=== PATIENT | male | born 1945 | race Caucasian/White ===

== ENCOUNTER 2018-07-18 19:00 | Observation (INO) | payer MEDICARE ==
[~2018-07-18] VITALS: Ht 182.9 cm; Wt 94.8 kg
[2018-07-18] MEDS ORDERED: ATORVASTATIN CA20 MG ORAL (19:04)
[2018-07-18] MEDS ORDERED: ASPIR 8181 MG ORAL (19:04)
[2018-07-18 19:05] VITALS: BP 155/88
--- NOTE | 2018-07-18 19:05 | NUR ---
ED Nurse Note: Pt brought in by [facility] for nausea and vomiting since 10 am. Pt states vomitus began to appear bloody. Last emesis was coffee ground like. No complaint of abdominal pain, abdomen soft, round and non-tender. Pt connected to monitor, VSS. Showing no signs of acute distress.
[2018-07-18] MEDS: Sodium Chloride 550 ML IV SCH ×2 (20:30→23:10)
[2018-07-18 20:52] LABS: HEMATOCRIT 49.5 % (42.0-52.0); HEMOGLOBIN 16.9 G/DL (14.2-18.0); MEAN CORPUSCULAR VOLUME 93 FL (80-99); PLATELET COUNT 154 K/UL (150-450); RED BLOOD COUNT 5.35 M/UL (4.70-6.10); RED CELL DISTRIBUTION WIDTH 11.6 % (11.6-14.8); WHITE BLOOD COUNT 9.5 K/UL (4.8-10.8)
[2018-07-18 20:57] LABS: BASOPHILS % (AUTO) 0.6 % (0.0-2.0); EOSINOPHILS % (AUTO) 1.2 % (0.0-3.0); LYMPHOCYTES % (AUTO) 4.2 % (20.0-45.0); MONOCYTES % (AUTO) 4.5 % (1.0-10.0); NEUTROPHILS % (AUTO) 89.5 % (45.0-75.0)
[2018-07-18 21:05] LABS: INR 1.1 (0.9-1.1)
[2018-07-18 21:07] LABS: ANION GAP 3 mmol/L (5-15); BLOOD UREA NITROGEN 18 mg/dL (7-18); CALCIUM 10.8 MG/DL (8.5-10.1); CARBON DIOXIDE 28 MMOL/L (21-32); CHLORIDE 106 MMOL/L (98-107); CREATININE 0.9 MG/DL (0.55-1.30); POTASSIUM 4.9 MMOL/L (3.5-5.1); SODIUM 137 MMOL/L (136-145)
--- NOTE | 2018-07-18 21:11 | Emergency Room Report ---
History of Present Illness General Chief Complaint: Gastrointestinal Bleed Source: Patient, Medical Record Present Illness HPI Patient presents from urgent care via EMS. He was vomiting blood earlier. Also he vomited some dark material he thinks had blood. He was constipated yesterday but moved his bowels. There was no melena. Denies any abdominal pain. Still feels nauseated. He feels dehydrated. The patient was retching forcefully before this happened. He denies any fevers or chills. The patient recently returned from [place] with a 16 hour flight. He denies any calf pain or edema. Has a history of cardiac stents and apparently has an ejection fraction of 50%. Distant smoking history. Allergies: Coded Allergies: No Known Allergies (Unverified , 07/18/18) Patient History Past Medical History: see triage record Past Surgical History: PTCA Social History: Denies: smoking - prior, alcohol use, drug use Social History Narrative business info consultant Reviewed Nursing Documentation: PMH: Agreed; PSxH: Agreed Nursing Documentation-PMH Past Medical History: No History, Except For Hx Cardiac Problems: No - stent 4 yrs ago Review of Systems All Other Systems: negative except mentioned in HPI Physical Exam Vital Signs Date Time Temp Pulse Resp B/P (MAP) Pulse Ox O2 Delivery O2 Flow Rate FiO2 07/18/18 19:00 99.7 80 16 155/88 96 Room Air Sp02 EP Interpretation: reviewed, normal General Appearance: well appearing, no apparent distress, GCS 15 Head: normocephalic, atraumatic Eyes: bilateral eye normal inspection, bilateral eye PERRL, bilateral eye EOMI ENT: dry mucus membranes Neck: supple Respiratory: lungs clear, normal breath sounds Cardiovascular #1: regular rate, rhythm Cardiovascular #2: 2+ radial (R) Gastrointestinal: normal inspection, normal bowel sounds, non tender, no mass, non-distended Musculoskeletal: back normal, gait/station normal, normal range of motion Neurologic: alert, oriented x3, grossly normal Psychiatric: mood/affect normal, other - articulate Skin: normal inspection, warm/dry Medical Decision Making Diagnostic Impression: Primary Impression: Gastrointestinal hemorrhage Qualified Codes: K92.2 - Gastrointestinal hemorrhage, unspecified Additional Impression: Stale abnormal EKG ER Course Patient presents after vomiting coffee grounds and blood. Differential includes gastritis, Alejandrina-Cornejo tear, peptic ulcer disease, gastroenteritis amongst others. We need to exclude any cardiac disease. He's recently traveled and consideration would be for pulmonary embolus also. This is less likely based on his vital signs. Evaluation will be with EKG, chest x-ray abdomen films and labs. The patient will be treated with gentle IV hydration and also Zofran and Pepcid. EKG with ST changes septally. Not STEMI. CXR unremarkable. ABD - NSBGP. Labs with normal WBC and H/H. CMP with slightly elevated calcium and glucose. Patient was comfortable with the plan to observe him here. Another daughter came in and says that she wants him at [facility]. She starting to sign out AMA. Asked her to wait for labs return. Reviewed labs with family and need for observation. They initially did not want this as they requested transfer to [facility], then changed their minds after discussion with PMD. EKG compared to 3 prior tracings 6 months and 1 year and unchanged. Still nauseated. Zofran repeated. Admit obs telemetry Dr. Mcgovern. Laboratory Tests Test 07/18/18 20:25 White Blood Count 9.5 K/UL (4.8-10.8) Red Blood Count 5.35 M/UL (4.70-6.10) Hemoglobin 16.9 G/DL (14.2-18.0) Hematocrit 49.5 % (42.0-52.0) Mean Corpuscular Volume 93 FL (80-99) Mean Corpuscular Hemoglobin 31.6 PG (27.0-31.0) H Mean Corpuscular Hemoglobin Concent 34.1 G/DL (32.0-36.0) Red Cell Distribution Width 11.6 % (11.6-14.8) Platelet Count 154 K/UL (150-450) Mean Platelet Volume 9.6 FL (6.5-10.1) Neutrophils (%) (Auto) 89.5 % (45.0-75.0) H Lymphocytes (%) (Auto) 4.2 % (20.0-45.0) L Monocytes (%) (Auto) 4.5 % (1.0-10.0) Eosinophils (%) (Auto) 1.2 % (0.0-3.0) Basophils (%) (Auto) 0.6 % (0.0-2.0) Prothrombin Time 11.5 SEC (9.30-11.50) Prothrombin Time INR 1.1 (0.9-1.1) PTT 24 SEC (23-33) Sodium Level 137 MMOL/L (136-145) Potassium Level 4.9 MMOL/L (3.5-5.1) Chloride Level 106 MMOL/L (98-107) Carbon Dioxide Level 28 MMOL/L (21-32) Anion Gap 3 mmol/L (5-15) L Blood Urea Nitrogen 18 mg/dL (7-18) Creatinine 0.9 MG/DL (0.55-1.30) Estimate Glomerular Filtration Rate > 60 mL/min (>60) Glucose Level 126 MG/DL (74-106) H Calcium Level 10.8 MG/DL (8.5-10.1) H Total Bilirubin 1.1 MG/DL (0.2-1.0) H Direct Bilirubin 0.3 MG/DL (0.0-0.3) Aspartate Amino Transferase (AST) 20 U/L (15-37) Alanine Aminotransferase (ALT) 28 U/L (12-78) Alkaline Phosphatase 102 U/L (46-116) Total Creatine Kinase 102 U/L (26-308) Troponin I 0.003 ng/mL (0.000-0.056) Total Protein 6.5 G/DL (6.4-8.2) Albumin 3.7 G/DL (3.4-5.0) Globulin 2.8 g/dL Albumin/Globulin Ratio 1.3 (1.0-2.7) Lipase 134 U/L (73-393) EKG Diagnostic Results Rate: normal Rhythm: NSR ST Segments: no acute changes - Septal ST abnormality, not STEMI Rhythm Strip Diag. Results EP Interpretation: yes Rhythm: NSR, no PVC's, no ectopy Chest X-Ray Diagnostic Results Chest X-Ray Diagnostic Results : Chest X-Ray Ordered: Yes # of Views/Limited/Complete: 1 View Indication: Other EP Interpretation: Yes Interpretation: no consolidation, no effusion, no pneumothorax, other - poor insp Impression: Other Electronically Signed by: Electronically signed by Esteban Edward MD Other X-Ray Diagnostic Results Other X-Ray Diagnostic Results : X-Ray ordered: abd # of Views/Limited Vs Complete: 2 View Indication: Other EP Interpretation: Yes Interpretation: nonspecific bowel gas, no sbo, other Impression: Other Electronically Signed by: Electronically signed by Esteban Edward MD Last Vital Signs Date Time Temp Pulse Resp B/P (MAP) Pulse Ox O2 Delivery O2 Flow Rate FiO2 07/18/18 23:40 62 07/18/18 23:00 Room Air 07/18/18 19:00 99.7 16 155/88 96 Status: improved Disposition: PLACE IN OBSERVATION Condition: Serious Referrals: NOT CHOSEN IPA/,REFERRING (PCP) Esteban Edward MD Jul 18, 2018 21:11
[2018-07-18 21:17] LABS: ALANINE AMINOTRANSFERASE 28 U/L (12-78); ALBUMIN 3.7 G/DL (3.4-5.0); ALBUMIN/GLOBULIN RATIO 1.3 (1.0-2.7); ALKALINE PHOSPHATASE 102 U/L (46-116); ASPARTATE AMINO TRANSFERASE 20 U/L (15-37); BILIRUBIN,TOTAL 1.1 MG/DL (0.2-1.0); CREATINE KINASE 102 U/L (26-308)
[2018-07-18 21:20] LABS: BILIRUBIN,DIRECT 0.3 MG/DL (0.0-0.3)
[2018-07-18] MEDS ORDERED: Morphine Sulfate 2mg/ml Inj(IV/IM USE ONLY) IVP ONE (21:30)
--- NOTE | 2018-07-18 22:45 | NUR ---
NURSE NOTES: Received a report over the phone from ILANA Dockery.Patient stable,no c/o pain,no respiratory distress noted,tolerated r/air well,no s/s of nausea and vomiting,A&Ox4,SR on hall monitor,no signs of dehydration noted,fluids,Pepcid and Zofran given in ER,patient ambulatory stable,waiting patient on a floor.
--- NOTE | 2018-07-18 22:55 | NUR ---
ED Nurse Note: Pt taken to [facility] for tele obs. Report given to ILANA Plunkett. Pt A/Ox4, at bedside. VSS. Showing no signs of distress. All belongings taken upstairs with patient along with belongings list.
--- NOTE | 2018-07-18 23:00 | NUR ---
NURSE NOTES: Pt brought on a floor,able to walk,no c/o nausea,no vomiting,BS active in all quadrants,lungs clear in an auscultation,IV asymptomatic,intact,belongings list signed,family at bedside.
[2018-07-19] VITALS (8 sets, daily range): BP systolic 118–142; BP diastolic 64–76
[2018-07-19] MEDS ORDERED: Morphine Sulfate 2mg/ml Inj(IV/IM USE ONLY) IVP PRN (01:45)
[2018-07-19] MEDS: Sodium Chloride 550 ML IV SCH ×3 (02:50→10:10)
[2018-07-19 05:41] LABS: BASOPHILS % (AUTO) 0.5 % (0.0-2.0); EOSINOPHILS % (AUTO) 0.9 % (0.0-3.0); HEMATOCRIT 44.9 % (42.0-52.0); HEMOGLOBIN 15.8 G/DL (14.2-18.0); LYMPHOCYTES % (AUTO) 12.1 % (20.0-45.0); MEAN CORPUSCULAR VOLUME 91 FL (80-99); MONOCYTES % (AUTO) 5.8 % (1.0-10.0); NEUTROPHILS % (AUTO) 80.7 % (45.0-75.0); PLATELET COUNT 157 K/UL (150-450); RED BLOOD COUNT 4.93 M/UL (4.70-6.10); RED CELL DISTRIBUTION WIDTH 11.7 % (11.6-14.8)
[2018-07-19 06:17] LABS: ALANINE AMINOTRANSFERASE 22 U/L (12-78); ALBUMIN 3.2 G/DL (3.4-5.0); ALBUMIN/GLOBULIN RATIO 1.1 (1.0-2.7); ALKALINE PHOSPHATASE 87 U/L (46-116); ANION GAP 6 mmol/L (5-15); ASPARTATE AMINO TRANSFERASE 15 U/L (15-37); BLOOD UREA NITROGEN 16 mg/dL (7-18); CALCIUM 10.4 MG/DL (8.5-10.1); CARBON DIOXIDE 25 MMOL/L (21-32); CHLORIDE 106 MMOL/L (98-107); PHOSPHORUS 2.4 MG/DL (2.5-4.9); POTASSIUM 3.8 MMOL/L (3.5-5.1); SODIUM 137 MMOL/L (136-145)
--- NOTE | 2018-07-19 07:44 | NUR ---
HAND-OFF: Report given to ILANA Foreman.Patient stable.
--- NOTE | 2018-07-19 07:44 | NUR ---
NURSE NOTES: received report from Kiarra PRECIADO. AO X4, denies pain, NPO present for Abdomen ultrasound. No signs of distress noted. Bed in low position locked. IV LAC/RAC 20G saline lock. Continue to monitor plan of care.
[2018-07-19] MEDS ORDERED: Pantoprazole Inj IVP SCH (09:00)
[2018-07-19] MEDS ORDERED: Protamine Sulfate Inj IV SCH (09:00)
--- NOTE | 2018-07-19 09:43 | NUR ---
NURSE NOTES: Called Dr. Mcgovern and informed him regarding phos and mg. level result with NNO. He ordered clear liquid diet.
--- NOTE | 2018-07-19 10:51 | Consultation ---
History of Present Illness General Date patient seen: Jul 19, 2018 Chief Complaint: Gastrointestinal Bleed Present Illness HPI 72 year old male with hx of hypercholesterolemia, presents from urgent care with CC of vomiting blood earlier. The patient recently returned from [place] with a 16 hour flight. He admits to eating lots of different types of food on his flight. His belly got distended and felt very nauseous. Also he vomited some dark material he thinks had blood. There was no melena. Denies any abdominal pain. He is admitted to telemetry for further work up. Allergies: Coded Allergies: No Known Allergies (Unverified , 07/18/18) Medication History Scheduled Aspirin* (Aspir 81*), 81 MG ORAL DAILY, (Reported) Atorvastatin Calcium* (Atorvastatin Calcium*), Unknown Dose ORAL BEDTIME, ( Reported) Patient History Healthcare decision maker patient Resuscitation status Full Code Advanced Directive on File No Past Medical/Surgical History Past Medical/Surgical History: (1) Hypercholesteremia Review of Systems Constitutional: Reports: no symptoms Eye: Reports: no symptoms Respiratory: Reports: no symptoms All Other Systems: negative except mentioned in HPI Physical Exam General Appearance: WD/WN, no apparent distress Lines, tubes and drains: peripheral HEENT: normocephalic Neck: non-tender, normal alignment Respiratory/Chest: chest wall non-tender, lungs clear Breasts: no masses Cardiovascular/Chest: normal peripheral pulses Abdomen: normal bowel sounds, non tender Genitourinary/Rectal: normal genital exam Extremities: normal range of motion Skin Exam: normal pigmentation Last 24 Hour Vital Signs Date Time Temp Pulse Resp B/P (MAP) Pulse Ox O2 Delivery O2 Flow Rate FiO2 07/19/18 09:00 Room Air 07/19/18 08:00 99.6 61 20 127/65 (85) 96 07/19/18 04:17 58 07/19/18 04:00 98.9 62 20 118/64 (82) 96 07/18/18 23:40 62 07/18/18 23:00 Room Air 07/18/18 22:55 98.7 91 22 147/97 97 Room Air 07/18/18 19:05 99.7 70 16 155/88 96 Room Air 07/18/18 19:05 80 16 Room Air 07/18/18 19:00 99.7 80 16 155/88 96 Room Air Intake and Output 07/18/18 07/19/18 19:00 07:00 Intake Total 0 ml Balance 0 ml Intake Oral 0 ml Laboratory Tests Test 07/18/18 20:25 07/19/18 05:11 White Blood Count 9.5 K/UL (4.8-10.8) 7.0 K/UL (4.8-10.8) Red Blood Count 5.35 M/UL (4.70-6.10) 4.93 M/UL (4.70-6.10) Hemoglobin 16.9 G/DL (14.2-18.0) 15.8 G/DL (14.2-18.0) Hematocrit 49.5 % (42.0-52.0) 44.9 % (42.0-52.0) Mean Corpuscular Volume 93 FL (80-99) 91 FL (80-99) Mean Corpuscular Hemoglobin 31.6 PG (27.0-31.0) H 32.0 PG (27.0-31.0) H Mean Corpuscular Hemoglobin Concent 34.1 G/DL (32.0-36.0) 35.2 G/DL (32.0-36.0) Red Cell Distribution Width 11.6 % (11.6-14.8) 11.7 % (11.6-14.8) Platelet Count 154 K/UL (150-450) 157 K/UL (150-450) Mean Platelet Volume 9.6 FL (6.5-10.1) 9.6 FL (6.5-10.1) Neutrophils (%) (Auto) 89.5 % (45.0-75.0) H 80.7 % (45.0-75.0) H Lymphocytes (%) (Auto) 4.2 % (20.0-45.0) L 12.1 % (20.0-45.0) L Monocytes (%) (Auto) 4.5 % (1.0-10.0) 5.8 % (1.0-10.0) Eosinophils (%) (Auto) 1.2 % (0.0-3.0) 0.9 % (0.0-3.0) Basophils (%) (Auto) 0.6 % (0.0-2.0) 0.5 % (0.0-2.0) Prothrombin Time 11.5 SEC (9.30-11.50) Prothromb Time International Ratio 1.1 (0.9-1.1) Activated Partial Thromboplast Time 24 SEC (23-33) Sodium Level 137 MMOL/L (136-145) 137 MMOL/L (136-145) Potassium Level 4.9 MMOL/L (3.5-5.1) 3.8 MMOL/L (3.5-5.1) Chloride Level 106 MMOL/L (98-107) 106 MMOL/L (98-107) Carbon Dioxide Level 28 MMOL/L (21-32) 25 MMOL/L (21-32) Anion Gap 3 mmol/L (5-15) L 6 mmol/L (5-15) Blood Urea Nitrogen 18 mg/dL (7-18) 16 mg/dL (7-18) Creatinine 0.9 MG/DL (0.55-1.30) 1.0 MG/DL (0.55-1.30) Estimat Glomerular Filtration Rate > 60 mL/min (>60) > 60 mL/min (>60) Glucose Level 126 MG/DL (74-106) H 109 MG/DL (74-106) H Calcium Level 10.8 MG/DL (8.5-10.1) H 10.4 MG/DL (8.5-10.1) H Total Bilirubin 1.1 MG/DL (0.2-1.0) H 1.0 MG/DL (0.2-1.0) Direct Bilirubin 0.3 MG/DL (0.0-0.3) Aspartate Amino Transf (AST/SGOT) 20 U/L (15-37) 15 U/L (15-37) Alanine Aminotransferase (ALT/SGPT) 28 U/L (12-78) 22 U/L (12-78) Alkaline Phosphatase 102 U/L (46-116) 87 U/L (46-116) Total Creatine Kinase 102 U/L (26-308) Troponin I 0.003 ng/mL (0.000-0.056) Total Protein 6.5 G/DL (6.4-8.2) 6.1 G/DL (6.4-8.2) L Albumin 3.7 G/DL (3.4-5.0) 3.2 G/DL (3.4-5.0) L Globulin 2.8 g/dL 2.9 g/dL Albumin/Globulin Ratio 1.3 (1.0-2.7) 1.1 (1.0-2.7) Lipase 134 U/L (73-393) Phosphorus Level 2.4 MG/DL (2.5-4.9) L Magnesium Level 1.6 MG/DL (1.8-2.4) L Height (Feet): 6 Weight (Pounds): 209 Medications Current Medications Medications (Trade) Dose Ordered Sig/Kayla Route PRN Reason Start Time Stop Time Status Last Admin Dose Admin Acetaminophen (Tylenol) 650 mg Q6H PRN ORAL Mild Pain/Temp > 100.5 07/18/18 23:45 08/17/18 23:44 Morphine Sulfate (Morphine Sulfate) 2 mg Q4H PRN IVP For Pain 07/19/18 01:45 07/26/18 01:44 Ondansetron HCl (Zofran ODT) 4 mg Q4H PRN ORAL Nausea & Vomiting 07/18/18 23:45 08/17/18 23:44 Pantoprazole (Protonix) 40 mg EVERY 12 HOURS IVP 07/19/18 09:00 08/18/18 08:59 07/19/18 09:26 Sodium Chloride 550 ml @ 150 mls/hr Q3H40M IV 07/18/18 19:30 08/17/18 19:29 07/18/18 20:30 Assessment/Plan Problem List: (1) Intractable nausea and vomiting ICD Codes: R11.2 - Nausea with vomiting, unspecified SNOMED: 720825647 (2) Gastrointestinal hemorrhage ICD Codes: K92.2 - Gastrointestinal hemorrhage, unspecified SNOMED: 89319247 Qualifiers: Qualified Codes: K92.2 - Gastrointestinal hemorrhage, unspecified (3) Hypercholesteremia ICD Codes: E78.00 - Pure hypercholesterolemia, unspecified SNOMED: 88521008 Assessment/Plan npo iv fluids check h/h h2 blockers GI evaluation dvt prophylaxis Ghazala Metzger MD Jul 19, 2018 10:51
--- NOTE | 2018-07-19 11:07 | Diagnostic Imaging Report ---
Indication: Nausea, vomiting, hematemesis, abnormal renal function Technique: Bethea-scale and duplex images of the upper abdomen were obtained. Doppler interrogation of the hepatic and pancreatic vessels Comparison: Findings: Gallbladder is unremarkable, without stones, wall thickening, nor pericholecystic fluid. Sonographic Rosen's sign is negative. Common bile duct measures 3 mm in diameter. No intrahepatic biliary ductal dilatation. Liver demonstrates normal echogenicity, no focal abnormality. It is mildly enlarged Portal vein and hepatic veins are patent. Pancreas is unremarkable. Spleen is upper limits normal in size. Left kidney measures 12.4 cm in length. Right kidney measures 11.1 cm length. Both kidneys demonstrate normal echogenicity. There is no hydronephrosis. Right kidney demonstrates a 7 mm calculus in the lower pole renal sinus, as well as other possible calcifications within the renal sinus. There is probably a calcification in the left renal sinus is well . Abdominal aorta is partially obscured by bowel gas, visualized portions are non-aneurysmal . Impression: Negative for gallstones or dilated bile ducts Mildly enlarged liver Evidence of nonobstructive bilateral intrarenal calculi Note nonvisualization of portions of the abdominal aorta
[2018-07-19] MEDS ORDERED: LR 1000ml 1,000 ML IVLG SCH (11:59)
[2018-07-19] MEDS ORDERED: HYDROcodone/Acetamin 7.5/325 tab ORAL PRN (12:00)
[2018-07-19] MEDS ORDERED: Atropine Sulfate 0.4mg/ml inj IVP PRN (12:00)
[2018-07-19] MEDS ORDERED: fentaNYL 100 mcg/2 mL IV PRN (12:00)
[2018-07-19] MEDS ORDERED: Metoclopramide 10mg/2ml Inj IVP PRN (12:00)
[2018-07-19] MEDS ORDERED: Hydromorphone 0.5mg/0.5ml inj IVP PRN (12:00)
[2018-07-19] MEDS ORDERED: Meperidine 50mg/ml Inj(FOR RIGORS ONLY) IVP PRN (12:00)
[2018-07-19] MEDS ORDERED: Midazolam 2mg/2ml Inj IVP PRN (12:00)
[2018-07-19] MEDS ORDERED: DiphenhydrAMINE 50mg/ml Inj IVP PRN (12:00)
[2018-07-19] MEDS ORDERED: LORazepam Inj 2mg/ml 1ml IV PRN (12:00)
[2018-07-19] MEDS ORDERED: Ketorolac 30mg Inj IV PRN ×2 (12:00)
[2018-07-19] MEDS ORDERED: HYDROcodone/Acetamin 5/325 tab ORAL PRN (12:00)
[2018-07-19] MEDS ORDERED: oxyCODONE HCL/Acetaminophen 5/325mg ORAL PRN (12:00)
--- NOTE | 2018-07-19 12:07 | Diagnostic Imaging Report ---
Indication: Chest pain Technique: One view of the chest Comparison: none Findings: The heart is borderline enlarged. There is bilateral interstitial congestion. No focal airspace consolidation or effusion Impression: Borderline cardiomegaly Bilateral mild interstitial congestion
--- NOTE | 2018-07-19 12:08 | Diagnostic Imaging Report ---
Indication: Abdominal pain Technique: Supine view of the abdomen Comparison: none Findings: Prominent but not frankly dilated gas-filled small bowel loops are seen in the left mid abdomen. The liver appears somewhat enlarged. No masses or unusual calcifications. Impression: No acute process
--- NOTE | 2018-07-19 12:10 | Anethesia Preoperative Eval ---
Anesthesia Pre-op PMH/ROS General Date of Evaluation: Jul 19, 2018 Time of Evaluation: 12:38 Anesthesiologist: Jessica ASA Score: ASA 3 Mallampati Score Class I : Soft palate, uvula, fauces, pillars visible Class II: Soft palate, uvula, fauces visible Class III: Soft palate, base of uvula visible Class IV: Only hard plate visible Mallampati Classification: Class II Surgeon: Adán Diagnosis: Hematemesis Surgical Procedure: EGD Anesthesia History: none Family History: no anesthesia problems Allergies: Coded Allergies: No Known Allergies (Unverified , 07/18/18) Medications: see eMAR Patient NPO?: Yes Past Medical History Cardiovascular: Reports: HTN, CAD - Stent, other - HL Gastrointestinal/Genitourinary: Reports: other - Upper GI Bleed Anesthesia Pre-op Phys. Exam Physician Exam Last Vital Signs Date Time Temp Pulse Resp B/P (MAP) Pulse Ox O2 Delivery O2 Flow Rate FiO2 07/19/18 09:00 Room Air 07/19/18 08:00 99.6 61 20 127/65 (85) 96 Constitutional: NAD Neurologic: CN 2-12 intact Cardiovascular: RRR Respiratory: CTA Gastrointestinal: S/NT/ND Airway Exam Mallampati Score: Class II MO: limited ROM: limited Teeth: missing, intact Anesthesia Pre-op A/P Labs Hematology Test 07/18/18 20:25 07/19/18 05:11 White Blood Count 9.5 K/UL (4.8-10.8) 7.0 K/UL (4.8-10.8) Red Blood Count 5.35 M/UL (4.70-6.10) 4.93 M/UL (4.70-6.10) Hemoglobin 16.9 G/DL (14.2-18.0) 15.8 G/DL (14.2-18.0) Hematocrit 49.5 % (42.0-52.0) 44.9 % (42.0-52.0) Mean Corpuscular Volume 93 FL (80-99) 91 FL (80-99) Mean Corpuscular Hemoglobin 31.6 PG (27.0-31.0) H 32.0 PG (27.0-31.0) H Mean Corpuscular Hemoglobin Concent 34.1 G/DL (32.0-36.0) 35.2 G/DL (32.0-36.0) Red Cell Distribution Width 11.6 % (11.6-14.8) 11.7 % (11.6-14.8) Platelet Count 154 K/UL (150-450) 157 K/UL (150-450) Mean Platelet Volume 9.6 FL (6.5-10.1) 9.6 FL (6.5-10.1) Neutrophils (%) (Auto) 89.5 % (45.0-75.0) H 80.7 % (45.0-75.0) H Lymphocytes (%) (Auto) 4.2 % (20.0-45.0) L 12.1 % (20.0-45.0) L Monocytes (%) (Auto) 4.5 % (1.0-10.0) 5.8 % (1.0-10.0) Eosinophils (%) (Auto) 1.2 % (0.0-3.0) 0.9 % (0.0-3.0) Basophils (%) (Auto) 0.6 % (0.0-2.0) 0.5 % (0.0-2.0) Coagulation Test 07/18/18 20:25 Prothrombin Time 11.5 SEC (9.30-11.50) Prothromb Time International Ratio 1.1 (0.9-1.1) Activated Partial Thromboplast Time 24 SEC (23-33) Chemistry Test 07/18/18 20:25 07/19/18 05:11 Sodium Level 137 MMOL/L (136-145) 137 MMOL/L (136-145) Potassium Level 4.9 MMOL/L (3.5-5.1) 3.8 MMOL/L (3.5-5.1) Chloride Level 106 MMOL/L (98-107) 106 MMOL/L (98-107) Carbon Dioxide Level 28 MMOL/L (21-32) 25 MMOL/L (21-32) Anion Gap 3 mmol/L (5-15) L 6 mmol/L (5-15) Blood Urea Nitrogen 18 mg/dL (7-18) 16 mg/dL (7-18) Creatinine 0.9 MG/DL (0.55-1.30) 1.0 MG/DL (0.55-1.30) Estimat Glomerular Filtration Rate > 60 mL/min (>60) > 60 mL/min (>60) Glucose Level 126 MG/DL (74-106) H 109 MG/DL (74-106) H Calcium Level 10.8 MG/DL (8.5-10.1) H 10.4 MG/DL (8.5-10.1) H Total Bilirubin 1.1 MG/DL (0.2-1.0) H 1.0 MG/DL (0.2-1.0) Direct Bilirubin 0.3 MG/DL (0.0-0.3) Aspartate Amino Transf (AST/SGOT) 20 U/L (15-37) 15 U/L (15-37) Alanine Aminotransferase (ALT/SGPT) 28 U/L (12-78) 22 U/L (12-78) Alkaline Phosphatase 102 U/L (46-116) 87 U/L (46-116) Total Creatine Kinase 102 U/L (26-308) Troponin I 0.003 ng/mL (0.000-0.056) Total Protein 6.5 G/DL (6.4-8.2) 6.1 G/DL (6.4-8.2) L Albumin 3.7 G/DL (3.4-5.0) 3.2 G/DL (3.4-5.0) L Globulin 2.8 g/dL 2.9 g/dL Albumin/Globulin Ratio 1.3 (1.0-2.7) 1.1 (1.0-2.7) Lipase 134 U/L (73-393) Phosphorus Level 2.4 MG/DL (2.5-4.9) L Magnesium Level 1.6 MG/DL (1.8-2.4) L Risk Assessment & Plan Assessment: ASA 3 Plan: GA Status Change Before Surgery: Oniel Lopez MD Jul 19, 2018 12:10
--- NOTE | 2018-07-19 12:11 | Immediate Post-Op Evaluation ---
Immediate Post-Op Evalulation Immediate Post-Op Evalulation Procedure: EGD Date of Evaluation: Jul 19, 2018 Time of Evaluation: 13:13 IV Fluids: 200 NS Blood Products: 0 Estimated Blood Loss: 3 Urinary Output: 0 Blood Pressure Systolic: 123 Blood Pressure Diastolic: 73 Pulse Rate: 54 Respiratory Rate: 16 O2 Sat by Pulse Oximetry: 100 Temperature (Fahrenheit): 98.5 Pain Score (1-10): 1 Nausea: No Vomiting: No Complications 0 Patient Status: awake, reacts, patent, none Hydration Status: adequate Oniel Lopez MD Jul 19, 2018 12:11
--- NOTE | 2018-07-19 12:11 | 48 Hour Post Anesthesia Eval ---
Post Anesthesia Evaluation Procedure: EGD Date of Evaluation: Jul 19, 2018 Time of Evaluation: 14:22 Blood Pressure Systolic: 128 0: 76 Pulse Rate: 62 Respiratory Rate: 18 Temperature (Fahrenheit): 98.6 O2 Sat by Pulse Oximetry: 100 Airway: patent Nausea: No Vomiting: No Pain Intensity: 1 Hydration Status: adequate Cardiopulmonary Status: Stable Mental Status/LOC: patient returned to baseline Follow-up Care/Observations: 0 Post-Anesthesia Complications: 0 Follow-up care needed: N/A Oniel Lopez MD Jul 19, 2018 12:11
[2018-07-19] MEDS ORDERED: NS 500ML IVPB ONE (12:23)
[2018-07-19] MEDS ORDERED: Propofol 200mg/20ml IV ONE (12:30)
[2018-07-19] MEDS ORDERED: Lidocaine 1% MPF 10mg/ml 5ml ONE (12:30)
--- NOTE | 2018-07-19 12:30 | Pre-Procedure Note/Attestation ---
Pre-Procedure Note/Attestation Complete Prior to Procedure Planned Procedure: not applicable Procedure Narrative: egd Indications for Procedure Pre-Operative Diagnosis: GIB Attestation I attest that I discussed the nature of the procedure; its benefits; risks and complications; and alternatives (and the risks and benefits of such alternatives ), prior to the procedure, with the patient (or the patient's legal sales representative consultant). I attest that, if there was a reasonable possibility of needing a blood transfusion, the patient (or the patient's legal sales representative consultant) was given the [facility] standardized written summary, pursuant to the [place] Blood Safety Act ([place] Health and Safety Code # 1645, as amended). I attest that I re-evaluated the patient just prior to the surgery and that there has been no change in the patient's H&P, except as documented below: Chris Mccain MD Jul 19, 2018 12:30
--- NOTE | 2018-07-19 12:32 | Short Stay Surgery H&P ---
History of Present Illness History of Present Illness Chief Complaint GIB HPI James Walls is a 72 year old male who was admitted on Jul 18, 2018 at 20:23 for Upper Gastrointestinal Bleed Patient History Allergies: Coded Allergies: No Known Allergies (Unverified , 07/18/18) PAST MEDICAL HISTORY: (1) CAD (coronary artery disease) (2) Intractable nausea and vomiting (3) Hypercholesteremia (4) Gastrointestinal hemorrhage Medication History Scheduled Aspirin* (Aspir 81*), 81 MG ORAL DAILY, (Reported) Atorvastatin Calcium* (Atorvastatin Calcium*), Unknown Dose ORAL BEDTIME, ( Reported) Review of Systems Cardiovascular: Reports: see HPI Respiratory: Reports: no symptoms Skeletal: Reports: no symptoms Gastrointestinal: Reports: see HPI Genitourinary: Reports: no symptoms Neurologic: Reports: no symptoms Endocrine: Reports: no symptoms Physical Exam Vital Signs Last Vital Signs Date Time Temp Pulse Resp B/P (MAP) Pulse Ox O2 Delivery O2 Flow Rate FiO2 07/19/18 09:00 Room Air 07/19/18 08:00 99.6 61 20 127/65 (85) 96 Labs Laboratory Tests Test 07/18/18 20:25 07/19/18 05:11 White Blood Count 9.5 K/UL (4.8-10.8) 7.0 K/UL (4.8-10.8) Red Blood Count 5.35 M/UL (4.70-6.10) 4.93 M/UL (4.70-6.10) Hemoglobin 16.9 G/DL (14.2-18.0) 15.8 G/DL (14.2-18.0) Hematocrit 49.5 % (42.0-52.0) 44.9 % (42.0-52.0) Mean Corpuscular Volume 93 FL (80-99) 91 FL (80-99) Mean Corpuscular Hemoglobin 31.6 PG (27.0-31.0) H 32.0 PG (27.0-31.0) H Mean Corpuscular Hemoglobin Concent 34.1 G/DL (32.0-36.0) 35.2 G/DL (32.0-36.0) Red Cell Distribution Width 11.6 % (11.6-14.8) 11.7 % (11.6-14.8) Platelet Count 154 K/UL (150-450) 157 K/UL (150-450) Mean Platelet Volume 9.6 FL (6.5-10.1) 9.6 FL (6.5-10.1) Neutrophils (%) (Auto) 89.5 % (45.0-75.0) H 80.7 % (45.0-75.0) H Lymphocytes (%) (Auto) 4.2 % (20.0-45.0) L 12.1 % (20.0-45.0) L Monocytes (%) (Auto) 4.5 % (1.0-10.0) 5.8 % (1.0-10.0) Eosinophils (%) (Auto) 1.2 % (0.0-3.0) 0.9 % (0.0-3.0) Basophils (%) (Auto) 0.6 % (0.0-2.0) 0.5 % (0.0-2.0) Prothrombin Time 11.5 SEC (9.30-11.50) Prothromb Time International Ratio 1.1 (0.9-1.1) Activated Partial Thromboplast Time 24 SEC (23-33) Sodium Level 137 MMOL/L (136-145) 137 MMOL/L (136-145) Potassium Level 4.9 MMOL/L (3.5-5.1) 3.8 MMOL/L (3.5-5.1) Chloride Level 106 MMOL/L (98-107) 106 MMOL/L (98-107) Carbon Dioxide Level 28 MMOL/L (21-32) 25 MMOL/L (21-32) Anion Gap 3 mmol/L (5-15) L 6 mmol/L (5-15) Blood Urea Nitrogen 18 mg/dL (7-18) 16 mg/dL (7-18) Creatinine 0.9 MG/DL (0.55-1.30) 1.0 MG/DL (0.55-1.30) Estimat Glomerular Filtration Rate > 60 mL/min (>60) > 60 mL/min (>60) Glucose Level 126 MG/DL (74-106) H 109 MG/DL (74-106) H Calcium Level 10.8 MG/DL (8.5-10.1) H 10.4 MG/DL (8.5-10.1) H Total Bilirubin 1.1 MG/DL (0.2-1.0) H 1.0 MG/DL (0.2-1.0) Direct Bilirubin 0.3 MG/DL (0.0-0.3) Aspartate Amino Transf (AST/SGOT) 20 U/L (15-37) 15 U/L (15-37) Alanine Aminotransferase (ALT/SGPT) 28 U/L (12-78) 22 U/L (12-78) Alkaline Phosphatase 102 U/L (46-116) 87 U/L (46-116) Total Creatine Kinase 102 U/L (26-308) Troponin I 0.003 ng/mL (0.000-0.056) Total Protein 6.5 G/DL (6.4-8.2) 6.1 G/DL (6.4-8.2) L Albumin 3.7 G/DL (3.4-5.0) 3.2 G/DL (3.4-5.0) L Globulin 2.8 g/dL 2.9 g/dL Albumin/Globulin Ratio 1.3 (1.0-2.7) 1.1 (1.0-2.7) Lipase 134 U/L (73-393) Phosphorus Level 2.4 MG/DL (2.5-4.9) L Magnesium Level 1.6 MG/DL (1.8-2.4) L Skin: normal HENT: normal Heart: normal Lungs: normal Abdomen: normal Extremities: normal Plan Plan of Care EGD Attestation Are the patient's medical conditions optimized for surgery? Attestation Response: yes Chris Mccain MD Jul 19, 2018 12:32
--- NOTE | 2018-07-19 12:41 | Endoscopy Procedure Note ---
Endoscopy Procedure Note General Indication for Procedure: gib Procedures Performed: EGD Operative Findings/Diagnosis: gastritis Specimen: yes Pt Tolerated Procedure Well: Yes Estimated Blood Loss: none Anesthesia Anesthesiologist: armen Anesthesia: MAC Inserted Devices Implant(s) used?: No GI Core Measures 50 yrs or older w/o bx or poly: Not Applicable 10yrs. F/U not recommended: Not Applicable Chris Mccain MD Jul 19, 2018 12:41
[2018-07-19] MEDS ORDERED: PROTONIX40 M2 GT (12:50)
[2018-07-19] MEDS ORDERED: CARAFATE1 GM/10 M1 ORAL (12:50)
--- NOTE | 2018-07-19 13:13 | NUR ---
NURSE NOTES: Received phone/bedside report from Abigail PRECIADO. Pt. s/p EGD with colonoscopy. Pt. awake, alert, no sign of distress. Denies pain at present. Informed pt. he had d/c home order from Dr. Metzger and pt. was pleased. Will cont. to monitor.
--- NOTE | 2018-07-19 14:50 | NUR ---
Homeless Discharge: Patient is being discharged from medical care. Awake, alert and oriented x4. After care instructions were given. Patient verbalized understanding of after care instructions upon discharge. All medical devices such as IV, cardiac cath lab manager and ID band were removed. Patient ambulated out with all personal belongings with steady gait with spouse. Addendum: 07/19/18 at 1503 by Sofi Ignacio RN Discharge: Patient is being discharged from medical care. Awake, alert and oriented x4. After care instructions were given. Patient verbalized understanding of after care instructions upon discharge. All medical devices such as IV, cardiac cath lab manager and ID band were removed. Patient ambulated out with all personal belongings with steady gait with spouse.
--- NOTE | 2018-07-19 16:05 | History & Physical ---
History and Physical History & Physicial patient was discharged prior my visit Robert Mcgovern MD Jul 19, 2018 16:05
--- NOTE | 2018-07-19 16:21 | Discharge Summary ---
Discharge Summary Hospital Course Date of Admission Jul 18, 2018 at 20:23 Date of Discharge Jul 19, 2018 at 14:50 Admitting Diagnosis UGI BLEED HPI James Walls is a 72 year old male who was admitted on Jul 18, 2018 at 20:23 for Upper Gastrointestinal Bleed Hospital Course Last 24 Hour Vital Signs Date Time Temp Pulse Resp B/P (MAP) Pulse Ox O2 Delivery O2 Flow Rate FiO2 07/19/18 13:30 97.7 58 18 127/71 (89) 95 07/19/18 13:20 98.0 58 18 128/74 98 Room Air 07/19/18 13:10 55 15 136/73 97 Room Air 07/19/18 13:05 53 20 124/74 97 Room Air 07/19/18 13:02 98.5 53 20 123/73 100 Simple Mask 6 07/19/18 13:02 62 18 100 07/19/18 13:00 54 16 100 07/19/18 12:00 98.0 60 20 142/76 (98) 95 07/19/18 12:00 63 07/19/18 09:00 Room Air 07/19/18 08:00 99.6 61 20 127/65 (85) 96 07/19/18 07:30 62 07/19/18 04:17 58 07/19/18 04:00 98.9 62 20 118/64 (82) 96 07/18/18 23:40 62 07/18/18 23:00 Room Air 07/18/18 22:55 98.7 91 22 147/97 97 Room Air 07/18/18 19:05 99.7 70 16 155/88 96 Room Air 07/18/18 19:05 80 16 Room Air 07/18/18 19:00 99.7 80 16 155/88 96 Room Air JoB # [id number] Discharge Discharge Disposition Patient was discharged to Home (01) Robert Mcgovern MD Jul 19, 2018 16:21
--- NOTE | 2018-07-19 20:15 | Procedure Note ---
DATE OF PROCEDURE: 07/19/2018 SURGEON: Chris Mccain M.D. PROCEDURE: Upper endoscopy with biopsy. ANESTHESIA: Per Dr. Oniel Lopez. INSTRUMENT: Olympus adult flexible upper endoscope. INDICATION: Coffee-ground emesis. REASON FOR PROCEDURE: The procedure, risks, benefits, and possible consequences, including hemorrhage, aspiration, perforation and infection, and alternative treatments, were explained to the patient/legal guardian by Dr. Chris Mccain and the patient/legal guardian understood and accepted these risks. PROCEDURE IN DETAIL: After informed consent was obtained and the patient was adequately sedated, Olympus upper endoscope was advanced from the mouth into the second portion of duodenum and retroflexion was performed in the stomach. The patient has evidence of Alejandrina-Cornejo tear, one at the GE junction, not actively bleeding, no visible vessel, no adherent clots. The patient also has evidence of medium-sized hiatal hernia. In the stomach, there was evidence of diffuse gastritis. Random biopsy from antrum and body was obtained to rule out H. pylori infection. The patient tolerated the procedure well without any complication. SUMMARY OF FINDINGS: 1. Alejandrina-Cornejo tear, not actively bleeding at this time. 2. Medium-sized hiatal hernia. 3. Gastritis, status post biopsy. RECOMMENDATIONS: 1. Follow up biopsy results and treat accordingly. 2. Continue on PPI. 3. Add Carafate. 4. Start free liquid diet and advance as tolerated. I want to thank, Dr. Robert Mcgovern, for this kind referral. Chris Mccain M.D. DR: WALE JOB#: [id number] CC: Robert Mcgovern M.D.; Fax#: [phone]
--- NOTE | 2018-07-20 00:15 | Discharge Summary ---
DATE OF ADMISSION: 07/18/2018 DATE OF DISCHARGE: 07/19/2018 HOSPITAL COURSE: This is a 72-year-old [place] gentleman with past medical history significant for dyslipidemia, who has presented to the hospital from Urgent Care after complaining about vomiting blood earlier. The patient recently returned from [place] about 16 hours ago, admitted eating a lot of different type of food while he was traveling. Shortly after initial evaluation in the emergency, the patient was admitted to the hospital with abdominal pain, mostly in epigastric area, with intractable nausea and vomiting, possibly due to gastrointestinal bleed. Throughout the hospital course, the patient was consulted with Dr. Metzger, Pulmonary Critical Care and Dr. Mccain from Gastroenterology. The patient underwent EGD and it showed gastritis. His status improved and subsequently was discharged home today to be followed in my office within one week. FINAL DIAGNOSES: 1. Abdominal pain, nausea, and vomiting most likely secondary to gastritis. 2. Dyslipidemia. MEDICATION AT DISCHARGE: Continue discharge medication list. ACTIVITY: As tolerated. DIET: Low-cholesterol diet. FOLLOWUP: The patient was advised to follow up in my office within one week. I advised him to hold aspirin at this time ____ the office. Robert Mcgovern M.D. DR: COOPER JOB#: [id number] CC:
== END 2018-07-19 14:50 | disposition home or self-care (01) ==
LOC: EDBD 19:00 → EMR 19:25 → 2W 20:23 → EDBEDREQ 22:10 → 2E 07-19 07:16
DX: K29.50 Unspecified chronic gastritis without bleeding (principal); K22.6 Gastro-esophageal laceration-hemorrhage syndrome; R11.2 Nausea with vomiting, unspecified; R10.9 Unspecified abdominal pain; E78.5 Hyperlipidemia, unspecified; E78.00 Pure hypercholesterolemia, unspecified; K44.9 Diaphragmatic hernia without obstruction or gangrene; K76.0 Fatty (change of) liver, not elsewhere classified; N20.0 Calculus of kidney; I25.10 Atherosclerotic heart disease of native coronary artery without angina pectoris; I11.9 Hypertensive heart disease without heart failure; Z98.61 Coronary angioplasty status; Z79.82 Long term (current) use of aspirin
CPT/HCPCS: 36415 ×2; 43239; 71045; 74018; 76700; 80053 ×2; 82248; 82550; 83690; 83735; 84100; 84484; 85025 ×2; 85610; 85730; 93005; 93970; 96374; 96375; 99284; C9113; J2405; J2704; J7040; S0028; 94003; 94150